=== PATIENT | female | born 1995 | race Caucasian/White ===

== ENCOUNTER 2019-07-07 10:30 | Emergency (ER) | payer MEDICAID ==
[~2019-07-07] VITALS: Ht 157.5 cm; Wt 97.7 kg
[2019-07-07 10:35] VITALS: Ht 157.5 cm; Wt 97.7 kg
[2019-07-07] MEDS ORDERED: KLONOPIN1 MG PO (10:36)
[2019-07-07] MEDS ORDERED: SEROQUEL100 MG PO (10:36)
[2019-07-07] MEDS ORDERED: EFFEXOR50 MG PO (10:36)
[2019-07-07] MEDS ORDERED: CORTEF10 MG PO (10:36)
[2019-07-07] MEDS ORDERED: AMITRIPTYLINE100 MG PO (10:37)
[2019-07-07] MEDS ORDERED: VENTOLIN HFA [SP8 GM INH (10:37)
[2019-07-07 11:56] LABS: HEMATOCRIT 44.5 % (36.0-48.0); MCH 27.9 pg (26.0-34.0); MCHC 33.7 g/dL (31.0-37.0); MCV 82.7 fL (80.0-100.0); MEAN PLATELET VOLUME 9.8 fL (7.4-10.4); NEUTROPHILS 70.4 % (40-80); PLATELET COUNT 259 10x3/uL (130-400); RBC 5.38 10x6/uL (4.00-5.40); RDW 14.3 % (11.5-14.5); WBC 7.7 10x3/uL (4.8-10.8)
[2019-07-07 11:59] LABS: HCG URINE NEGATIVE (NEGATIVE)
[2019-07-07 11:59] LABS: CALC OSMOLALITY 274 mosm/kg (275-300); CALCIUM 9.1 mg/dL (8.5-10.1); CHLORIDE - SERUM 104 mmol/L (98-107); CREATININE - SERUM 0.6 mg/dL (0.6-1.3); GLUCOSE 83 mg/dL (74-106); POTASSIUM - SERUM 3.5 mmol/L (3.5-5.1); SODIUM 140 mmol/L (136-145); UREA NITROGEN 5 mg/dL (7-18); eGFR NON AFRICAN AMERICAN > 90 mL/min (90-120)
[2019-07-07 12:02] LABS: APTT 29.9 SECONDS (22.8-39.4); PROTIME 13.1 SECONDS (11.6-15.0)
[2019-07-07 12:04] LABS: UDS - AMPHET NEGATIVE QUAL (NEGATIVE); UDS - BARB NEGATIVE QUAL (NEGATIVE); UDS - BENZO NEGATIVE QUAL (NEGATIVE); UDS - COCAINE NEGATIVE QUAL (NEGATIVE); UDS - OPIATE NEGATIVE QUAL (NEGATIVE); UDS - PCP NEGATIVE QUAL (NEGATIVE); UDS - THC NEGATIVE QUAL (NEGATIVE)
[2019-07-07 12:08] LABS: BACTERIA MODERATE /hpf (NEGATIVE); BILIRUBIN NEGATIVE (NEGATIVE); GLUCOSE NEGATIVE (NEGATIVE); KETONE NEGATIVE (NEGATIVE); NITRITE NEGATIVE (NEGATIVE); RED CELLS - URINE OCC /hpf (0-5); UROBILINOGEN NORMAL (NORMAL); WHITE CELLS - URINE 0-5 /hpf (NEGATIVE)
[2019-07-07 12:19] LABS: ALBUMIN 3.8 g/dL (3.4-5.0); ALKALINE PHOSPHATASE 121 U/L (30-120); ALT (SGPT) 29 U/L (10-68); BILIRUBIN - TOTAL 0.44 mg/dL (0.2-1.3); C-REACTIVE PROTEIN 0.2 mg/dL (0.0-0.9); CKMB 0.4 U/L (0.0-3.6); CREATINE KINASE 102 UL (21-215); FERRITIN 40 ng/mL (3-244); THYROID STIMULATING HORMONE 1.16 uIU/mL (0.36-3.74); TROPONIN-I < 0.017 ng/mL (0.000-0.060)
[2019-07-07 13:41] VITALS: BP 125/86
== END 2019-07-07 13:41 | disposition home or self-care (01) ==
LOC: D.ER 10:30
PROVIDERS: Family Medicine
DX: F41.9 Anxiety disorder, unspecified (principal); F41.0 Panic disorder [episodic paroxysmal anxiety]; R55 Syncope and collapse; J45.909 Unspecified asthma, uncomplicated